=== PATIENT | male | born 1935 | race Caucasian/White ===

== ENCOUNTER → 2017-07-30 | Outpatient (CLI) | payer OTHER | LOC: BRMIMAGING 08:29 | PROVIDERS: ATTEND Family Medicine | DX: Z13.820 Encounter for screening for osteoporosis (principal); M85.89 Other specified disorders of bone density and structure, multiple sites ==

== ENCOUNTER → 2017-12-01 | Outpatient (CLI) | payer OTHER | LOC: BRMIMAGING 12:28 | PROVIDERS: ATTEND Family Medicine | DX: M11.231 Other chondrocalcinosis, right wrist (principal); M19.031 Primary osteoarthritis, right wrist; M24.031 Loose body in right wrist; Z87.81 Personal history of (healed) traumatic fracture | CPT/HCPCS: 73110-PO; 73130-PO ==

== ENCOUNTER → 2018-02-04 | Outpatient (CLI) | payer OTHER | LOC: BRMIMAGING 13:20 | PROVIDERS: ATTEND Family Medicine | DX: J98.4 Other disorders of lung (principal) | CPT/HCPCS: 71046-PO ==